=== PATIENT | male | born 1965 | race American Indian/Alaskan Native ===

== ENCOUNTER 2020-03-17 07:39 | Day surgery (SDC) | payer OTHER ==
[~2020-03-17] VITALS: Ht 198.1 cm; Wt 121.1 kg
[2020-03-17 09:20] VITALS: BP 119/74
[2020-03-17 15:11] VITALS: BP 120/74
== END 2020-03-17 15:20 | disposition home or self-care (01) ==
LOC: GI 07:39 → OR 13:00 → GI 15:20
PROVIDERS: ATTEND Internal Medicine Gastroenterology
DX: Z12.11 Encounter for screening for malignant neoplasm of colon (principal); Z80.0 Family history of malignant neoplasm of digestive organs; Z79.82 Long term (current) use of aspirin
CPT/HCPCS: 45378; J1200; J1610; J2250; J2310; J3010; J3490